=== PATIENT | female | born 2000 | race Caucasian/White ===

== ENCOUNTER 2024-11-12 06:27 | Day surgery (SDC) | payer BC, SELFPAY | END 2024-11-12 12:06 | disposition home or self-care (01) | LOC: GI 06:27 | PROVIDERS: ATTENDING PHYSICIAN Internal Medicine | DX: K51.50 Left sided colitis without complications (principal); K51.20 Ulcerative (chronic) proctitis without complications; K56.2 Volvulus | CPT/HCPCS: 45380; 88305 ==